=== PATIENT | female | born 2000 | race African-American/Black ===

== ENCOUNTER 2021-02-26 22:24 | Inpatient (IN) | payer OTHER, SELFPAY ==
[~2021-02-26] VITALS: Ht 149.9 cm; Wt 83.0 kg
[2021-02-26] MEDS ORDERED: CARBOPROST 250 MCG/ML AMP IM PRN (23:50)
[2021-02-26] MEDS: LACTATED RINGERS 1,000 ML IV SCH (23:50)
[2021-02-26] MEDS ORDERED: METHYLERGONOVINE 0.2 MG/ML AMP IM PRN (23:50)
[2021-02-27] MEDS: LACTATED RINGERS 1,000 ML IV SCH ×2 (00:03→06:56)
[2021-02-27] MEDS ORDERED: MORPHINE SULFATE 5 MG/ML VIAL IVP PRN (00:25)
[2021-02-27 00:32] LABS: BASOPHILS % (AUTO) 0.2 % (0.0-2.0); EOSINOPHILS # (AUTO) 0.1 K/uL (0-0.4); EOSINOPHILS % (AUTO) 0.6 % (0.0-4.0); HEMOGLOBIN 11.1 g/dL (12.0-16.0); LYMPHOCYTES # (AUTO) 1.5 K/uL (2.5-16.5); LYMPHOCYTES % (AUTO) 16.2 % (20.5-51.1); MEAN CORPUSCULAR HEMOGLOBIN 31 pg (27-31); MEAN CORPUSCULAR HGB CONC 34 g/dL (33-37); MEAN CORPUSCULAR VOLUME 91.6 fL (80-94); MONOCYTES # (AUTO) 0.9 K/uL (0.8-1.0); MONOCYTES % (AUTO) 9.1 % (1.7-9.3); NEUTROPHILS % (AUTO) 73.9 % (42.2-75.2); PLATELET COUNT (AUTO) 269 K/uL (140-450); RED CELL DISTRIBUTION WIDTH 15.2 % (11.6-13.7); WHITE BLOOD COUNT (AUTO) 9.4 K/uL (4.8-10.8)
[2021-02-27 00:46] LABS: ALBUMIN 2.8 g/dL (3.4-5.0); ANION GAP 15.6 (8-16); CARBON DIOXIDE 20.9 mmol/L (21-32); CREATININE 0.8 mg/dL (0.6-1.3); POTASSIUM 3.5 mmol/L (3.5-5.1); TOTAL BILIRUBIN 0.3 mg/dL (0.0-1.0)
[2021-02-27 01:36] LABS: APPEARANCE,URINE HAZY (CLEAR); BILIRUBIN,URINE NEGATIVE (NEGATIVE); BLOOD, URINE NEGATIVE (NEGATIVE); COLOR,URINE YELLOW (YELLOW); LEUKOCYTE ESTERASE ,URINE NEGATIVE (NEGATIVE); NITRITE, URINE NEGATIVE (NEGATIVE); PH,URINE 6.5 (5.0-9.0); UGLUCOSE NEGATIVE (NEGATIVE)
[2021-02-27] MEDS: MISOPROSTOL 25 MCG TAB VG PRN ×2 (01:37→19:02)
[2021-02-27 01:47] LABS: RBC,URINE 0-5 /HPF (0-5); WBC,URINE 0-5 /HPF (0-5)
[2021-02-27 02:10] VITALS: BP 116/72
[2021-02-27] MEDS ORDERED: MORPHINE SULFATE 10 MG/ML VIAL ONE (14:08)
[2021-02-27] MEDS: ONDANSETRON 4 MG/2 ML VIAL IVP PRN (14:15)
[2021-02-27 14:16] VITALS: BP 113/55
[2021-02-27] MEDS ORDERED: OXYTOCIN 20 UNITS in LACTATED RINGERS 1,000 ML IV SCH (19:40)
[2021-02-28] MEDS: LACTATED RINGERS 1,000 ML IV SCH (00:07)
[2021-02-28] MEDS ORDERED: MORPHINE SULFATE 10 MG/ML VIAL ONE (02:46)
[2021-02-28] MEDS: ONDANSETRON 4 MG/2 ML VIAL IVP PRN (02:52)
[2021-02-28] MEDS: MISOPROSTOL 25 MCG TAB VG PRN (07:45)
--- NOTE | 2021-02-28 09:17 | NUR ---
PATIENT HAS BEEN SCREENED AND CATEGORIZED LOW NUTRITION RISK. PATIENT WILL BE SEEN WITHIN 7 DAYS OF ADMISSION. 03/05/[address]
[2021-02-28] MEDS ORDERED: ONDANSETRON 4 MG/2 ML VIAL ONE (20:35)
[2021-02-28] MEDS ORDERED: MORPHINE PRES FREE 10 MG/10 ML AMP IV ONE (20:35)
[2021-02-28] MEDS ORDERED: OXYTOCIN 10 UNITS/ML VIAL ONE ×3 (21:23)
[2021-02-28] MEDS ORDERED: DEXAMETHASONE 4 MG/ML VIAL ONE ×2 (21:24)
[2021-02-28] MEDS ORDERED: METOCLOPRAMIDE 10 MG/2 ML INJ VIAL ONE (21:24)
[2021-02-28] MEDS ORDERED: NALOXONE 0.4 MG/ML VIAL IVP PRN ×3 (21:30)
[2021-02-28] MEDS ORDERED: HYDROmorphone 1 MG/ML AMP IVP PRN (21:30)
[2021-02-28] MEDS ORDERED: ONDANSETRON 4 MG/2 ML VIAL IVP PRN ×3 (21:30→21:40)
[2021-02-28] MEDS ORDERED: NALBUPHINE 10 MG/ML AMP IVP PRN (21:30)
[2021-02-28] MEDS ORDERED: diphenhydrAMINE 50 MG/ML VIAL IVP PRN ×2 (21:30→21:40)
[2021-02-28] MEDS ORDERED: oxyCODONE/APAP 5/325 MG 1 TAB TAB PO PRN (21:40)
[2021-02-28] MEDS ORDERED: CARBOPROST 250 MCG/ML AMP IM PRN (21:40)
[2021-02-28] MEDS ORDERED: PROMETHAZINE 25 MG/ML VIAL IVP PRN (21:40)
[2021-02-28] MEDS ORDERED: MEASLES, MUMPS, AND RUBELLA 1 VIAL SQVAC ONE (21:40)
[2021-02-28] MEDS ORDERED: METHYLERGONOVINE 0.2 MG/ML AMP IM PRN ×2 (21:40)
[2021-02-28] MEDS ORDERED: OXYTOCIN 20 UNITS in LACTATED RINGERS 1,000 ML IV SCH (21:40)
[2021-02-28] MEDS ORDERED: HYDROmorphone PFS 2 MG/ML SYR ONE (21:55)
[2021-02-28] MEDS ORDERED: OXYTOCIN 20 UNITS/LR PREMIX 1,000 ML IV ONE (23:01)
[2021-03-01] MEDS ORDERED: KETOROLAC 30 MG/ML VIAL IM/IVP SCH
[2021-03-01] MEDS: KETOROLAC 30 MG/ML VIAL IM/IVP SCH ×3 (00:10→13:51)
[2021-03-01 06:24] LABS: BASOPHILS % (AUTO) 0.1 % (0.0-2.0); HEMATOCRIT 33.7 % (36-48); HEMOGLOBIN 11.2 g/dL (12.0-16.0); LYMPHOCYTES # (AUTO) 0.6 K/uL (2.5-16.5); LYMPHOCYTES % (AUTO) 4.5 % (20.5-51.1); MEAN CORPUSCULAR HEMOGLOBIN 30 pg (27-31); MEAN CORPUSCULAR HGB CONC 33 g/dL (33-37); MEAN CORPUSCULAR VOLUME 91.7 fL (80-94); MONOCYTES # (AUTO) 0.7 K/uL (0.8-1.0); MONOCYTES % (AUTO) 5.6 % (1.7-9.3); NEUTROPHILS # (AUTO) 11.9 K/uL (1.8-7.7); NEUTROPHILS % (AUTO) 89.8 % (42.2-75.2); PLATELET COUNT (AUTO) 267 K/uL (140-450); RED BLOOD CELL COUNT(AUTO) 3.68 MIL/uL (4.20-5.40); WHITE BLOOD COUNT (AUTO) 13.3 K/uL (4.8-10.8)
[2021-03-01] MEDS ORDERED: bisacodyL 10 MG SUPP RC SCH (09:00)
[2021-03-01] MEDS ORDERED: OXYTOCIN 20 UNITS/LR PREMIX 1,000 ML IV ONE (16:51)
[2021-03-01] MEDS: oxyCODONE/APAP 5/325 MG 1 TAB TAB PO PRN (21:09)
[2021-03-02] MEDS: oxyCODONE/APAP 5/325 MG 1 TAB TAB PO PRN ×2 (06:53→11:00)
== END 2021-03-02 14:45 | disposition home or self-care (01) | DRG 540 ==
LOC: MLD 22:24 → MFCC 02-28 22:11
PROVIDERS: ADMIT Obstetrics & Gynecology; ATTEND Obstetrics & Gynecology
PROC: 10D00Z1 Extraction of Products of Conception, Low, Open Approach (ICD-10-PCS; principal; 2021-03-01)
DX: O62.0 Primary inadequate contractions (principal); O61.9 Failed induction of labor, unspecified; O36.60X0 Maternal care for excessive fetal growth, unspecified trimester, not applicable or unspecified; Z37.0 Single live birth; Z3A.39 39 weeks gestation of pregnancy; Z20.822 Contact with and (suspected) exposure to COVID-19
CPT/HCPCS: 36415; 51702; 59200; 76815; 80053; 81001; 85025; 86592; 86762; 86886; 86900; 86901; 87086; 87340; J0690; J1100; J1170; J1885; J2210; J2270; J2405; J2590; J2765; J7060; J7120; Q0092

== ENCOUNTER 2021-12-08 10:38 | Emergency (ER) | payer OTHER ==
[~2021-12-08] VITALS: Ht 149.9 cm; Wt 67.6 kg
[2021-12-08 10:47] VITALS: BP 116/56
--- NOTE | 2021-12-08 10:50 | NUR ---
PT AMBULATED TO ER BED 9 WITH A STEADY GAIT.
--- NOTE | 2021-12-08 10:52 | NUR ---
21 Y/O FEMALE C/O VAGINAL BLEEDING X3DAYS WITH SMALL CLOTS PRESENT. PT IS 7WEEKS LMP 09/27/21 [id number]. DENIES PAIN. DENIES DISCHARGE. DENIES FEVER/CHILLS. DENIES N/V/D. DENIES PMH NKA
--- NOTE | 2021-12-08 11:33 | NUR ---
STEAM TRAP MAN AT PT BEDSIDE.
--- NOTE | 2021-12-08 11:40 | NUR ---
US AT PT BEDSIDE.
[2021-12-08 11:49] LABS: BASOPHILS % (AUTO) 0.4 % (0.0-2.0); EOSINOPHILS # (AUTO) 0.2 K/uL (0-0.4); EOSINOPHILS % (AUTO) 2.2 % (0.0-4.0); HEMATOCRIT 33.1 % (36-48); HEMOGLOBIN 10.9 g/dL (12.0-16.0); LYMPHOCYTES # (AUTO) 1.8 K/uL (2.5-16.5); LYMPHOCYTES % (AUTO) 17.9 % (20.5-51.1); MEAN CORPUSCULAR HEMOGLOBIN 28 pg (27-31); MEAN CORPUSCULAR HGB CONC 33 g/dL (33-37); MEAN CORPUSCULAR VOLUME 84.4 fL (80-94); MONOCYTES # (AUTO) 0.8 K/uL (0.8-1.0); MONOCYTES % (AUTO) 7.7 % (1.7-9.3); NEUTROPHILS # (AUTO) 7.1 K/uL (1.8-7.7); NEUTROPHILS % (AUTO) 71.8 % (42.2-75.2); PLATELET COUNT (AUTO) 367 K/uL (140-450); RED BLOOD CELL COUNT(AUTO) 3.92 MIL/uL (4.20-5.40); RED CELL DISTRIBUTION WIDTH 14.2 % (11.6-13.7); WHITE BLOOD COUNT (AUTO) 9.9 K/uL (4.8-10.8)
--- NOTE | 2021-12-08 12:07 | NUR ---
PT RESTING IN BED SUPINE, US TECH AT PT BEDSIDE, WILL CONTINUE TO MONITOR.
[2021-12-08 12:36] LABS: ALBUMIN 3.8 g/dL (3.4-5.0); ANION GAP 12.3 (8-16); CARBON DIOXIDE 25.4 mmol/L (21-32); CREATININE 0.7 mg/dL (0.6-1.3); POTASSIUM 3.7 mmol/L (3.5-5.1); TOTAL BILIRUBIN 0.6 mg/dL (0.0-1.0)
[2021-12-08 13:13] VITALS: BP 106/60
--- NOTE | 2021-12-08 13:14 | NUR ---
Patient discharged with v/s stable. Written and verbal after care instructions ABOUT THREATENED MISCARRIAGE given and explained. Patient verbalized understanding. Ambulatory with steady gait. All questions addressed prior to discharge. Advised to follow up with PMD.
[2021-12-08 14:07] LABS: APPEARANCE,URINE CLEAR (CLEAR); BILIRUBIN,URINE NEGATIVE (NEGATIVE); BLOOD, URINE NEGATIVE (NEGATIVE); COLOR,URINE YELLOW (YELLOW); LEUKOCYTE ESTERASE ,URINE NEGATIVE (NEGATIVE); NITRITE, URINE NEGATIVE (NEGATIVE); UGLUCOSE NEGATIVE (NEGATIVE)
== END 2021-12-08 13:13 | disposition home or self-care (01) ==
LOC: MED 10:38
DX: O20.0 Threatened abortion (principal); Z3A.01 Less than 8 weeks gestation of pregnancy
CPT/HCPCS: 36415; 76801; 80053; 81003; 81025; 84702; 85025; 86886; 86900; 86901; 99284; Q0092

== ENCOUNTER 2022-06-30 15:49 | Inpatient (IN) | payer OTHER ==
[~2022-06-30] VITALS: Ht 149.9 cm; Wt 78.5 kg
--- NOTE | 2022-06-30 16:14 | NUR ---
PATIENT HAS BEEN SCREENED AND CATEGORIZED LOW NUTRITION RISK. PATIENT WILL BE SEEN WITHIN 7 DAYS OF ADMISSION. 07/07/[address]
[2022-06-30] MEDS: LACTATED RINGERS 1,000 ML IV SCH ×2 (16:52→20:00)
[2022-06-30 17:02] LABS: BASOPHILS % (AUTO) 0.4 % (0.0-2.0); EOSINOPHILS # (AUTO) 0.1 K/uL (0-0.4); EOSINOPHILS % (AUTO) 0.7 % (0.0-4.0); HEMATOCRIT 33.8 % (36-48); HEMOGLOBIN 11.1 g/dL (12.0-16.0); LYMPHOCYTES # (AUTO) 1.8 K/uL (2.5-16.5); MEAN CORPUSCULAR HEMOGLOBIN 28 pg (27-31); MEAN CORPUSCULAR HGB CONC 33 g/dL (33-37); MEAN CORPUSCULAR VOLUME 86.6 fL (80-94); MONOCYTES # (AUTO) 1.1 K/uL (0.8-1.0); MONOCYTES % (AUTO) 9.4 % (1.7-9.3); NEUTROPHILS # (AUTO) 8.3 K/uL (1.8-7.7); NEUTROPHILS % (AUTO) 73.5 % (42.2-75.2); PLATELET COUNT (AUTO) 327 K/uL (140-450); RED CELL DISTRIBUTION WIDTH 16.4 % (11.6-13.7); WHITE BLOOD COUNT (AUTO) 11.3 K/uL (4.8-10.8)
[2022-06-30 17:43] LABS: BILIRUBIN,URINE NEGATIVE (NEGATIVE); BLOOD, URINE NEGATIVE (NEGATIVE); COLOR,URINE YELLOW (YELLOW); LEUKOCYTE ESTERASE ,URINE 3+ (NEGATIVE); NITRITE, URINE NEGATIVE (NEGATIVE); PH,URINE 6.5 (5.0-9.0); UGLUCOSE NEGATIVE (NEGATIVE)
[2022-06-30 17:46] LABS: PROTHROMBIN TIME 9.8 secs (10.8-13.4)
[2022-06-30 17:52] LABS: APPEARANCE,URINE HAZY (CLEAR)
[2022-06-30 18:50] LABS: ANION GAP 15.7 (8-16); CARBON DIOXIDE 21.1 mmol/L (21-32); CREATININE 0.8 mg/dL (0.6-1.3); POTASSIUM 3.8 mmol/L (3.5-5.1); TOTAL BILIRUBIN 0.6 mg/dL (0.0-1.0)
[2022-06-30] MEDS ORDERED: ceFAZolin 2,000 MG VIAL ONE (19:00)
[2022-06-30 19:08] VITALS: BP 103/57
[2022-06-30] MEDS ORDERED: MORPHINE PRES FREE 10 MG/10 ML AMP IV ONE (20:30)
[2022-06-30] MEDS ORDERED: METHYLERGONOVINE 0.2 MG/ML AMP IM PRN (20:45)
[2022-06-30] MEDS ORDERED: MEASLES, MUMPS, AND RUBELLA 1 VIAL SQVAC ONE (20:45)
[2022-06-30] MEDS ORDERED: oxyCODONE/APAP 5/325 MG 1 TAB TAB PO PRN (20:45)
[2022-06-30] MEDS ORDERED: TRIAMCINOLONE 40 MG/ML 5ML VIAL ONE (21:09)
[2022-06-30] MEDS ORDERED: OXYTOCIN 20 UNITS/LR PREMIX 0 ML IV ONE (21:29)
[2022-06-30] MEDS ORDERED: OXYTOCIN 20 UNITS/LR PREMIX 1,000 ML IV ONE (21:31)
[2022-06-30] MEDS ORDERED: ONDANSETRON 4 MG/2 ML VIAL IVP PRN (21:35)
[2022-06-30] MEDS ORDERED: diphenhydrAMINE 50 MG/ML VIAL IVP PRN (21:35)
[2022-06-30] MEDS ORDERED: METOCLOPRAMIDE 10 MG/2 ML INJ VIAL IVP PRN (21:35)
[2022-06-30] MEDS ORDERED: NALOXONE 0.4 MG/ML VIAL IVP PRN ×3 (21:35)
[2022-06-30] MEDS ORDERED: NALBUPHINE 10 MG/ML AMP IVP PRN (21:35)
[2022-06-30 22:16] LABS: RBC,URINE 0-5 /HPF (0-5); WBC,URINE 20-60 /HPF (0-5)
[2022-06-30 22:17] LABS: YEAST,URINE Few /HPF (None Seen)
[2022-07-01] MEDS: KETOROLAC 30 MG/ML VIAL IM/IVP SCH ×3 (00:14→12:03)
[2022-07-01] MEDS ORDERED: OXYTOCIN 20 UNITS/LR PREMIX 1,000 ML IV ONE ×2 (03:01→10:44)
[2022-07-01] MEDS: OXYTOCIN 20 UNITS in LACTATED RINGERS 1,000 ML IV SCH ×2 (03:08→11:06)
[2022-07-01] MEDS ORDERED: oxyCODONE/APAP 5/325 MG 1 TAB TAB PO PRN ×2 (07:40)
[2022-07-01] MEDS ORDERED: SIMETHICONE 80 MG TAB.CHEW PO PRN (07:55)
[2022-07-01 08:41] LABS: BASOPHILS % (AUTO) 0.1 % (0.0-2.0); HEMATOCRIT 31.1 % (36-48); LYMPHOCYTES % (AUTO) 7.1 % (20.5-51.1); MEAN CORPUSCULAR HEMOGLOBIN 28 pg (27-31); MEAN CORPUSCULAR HGB CONC 32 g/dL (33-37); MEAN CORPUSCULAR VOLUME 87.6 fL (80-94); MONOCYTES % (AUTO) 6.6 % (1.7-9.3); NEUTROPHILS # (AUTO) 12.5 K/uL (1.8-7.7); NEUTROPHILS % (AUTO) 86.2 % (42.2-75.2); PLATELET COUNT (AUTO) 297 K/uL (140-450); RED BLOOD CELL COUNT(AUTO) 3.55 MIL/uL (4.20-5.40); RED CELL DISTRIBUTION WIDTH 16.1 % (11.6-13.7); WHITE BLOOD COUNT (AUTO) 14.5 K/uL (4.8-10.8)
[2022-07-01] MEDS ORDERED: bisacodyL 10 MG SUPP RC SCH (09:00)
[2022-07-01] MEDS: IBUPROFEN 800 MG TAB PO SCH (17:53)
[2022-07-01] MEDS ORDERED: CAMERA MC ONE (19:50)
[2022-07-02] MEDS: IBUPROFEN 800 MG TAB PO SCH ×2 (07:22→12:13)
== END 2022-07-02 15:10 | disposition home or self-care (01) | DRG 540 ==
LOC: MLD 15:49 → MFCC 22:48
PROVIDERS: ADMIT Obstetrics & Gynecology; ATTEND Obstetrics & Gynecology
PROC: 3E0234Z Introduction of Serum, Toxoid and Vaccine into Muscle, Percutaneous Approach (ICD-10-PCS; 2022-06-30)
PROC: 10D00Z1 Extraction of Products of Conception, Low, Open Approach (ICD-10-PCS; principal; 2022-06-30 20:00)
DX: O48.0 Post-term pregnancy (principal); O24.429 Gestational diabetes mellitus in childbirth, unspecified control; Z20.822 Contact with and (suspected) exposure to COVID-19; Z3A.40 40 weeks gestation of pregnancy; Z37.0 Single live birth
CPT/HCPCS: 36415; 80053; 81001; 85025; 85610; 85730; 86592; 86886; 86900; 86901; 87086; J1885; J2270; J2590; J3301; J7120

== ENCOUNTER 2022-07-07 16:20 | Emergency (ER) | payer OTHER ==
[~2022-07-07] VITALS: Ht 149.9 cm; Wt 73.0 kg
[2022-07-07 16:31] VITALS: BP 129/73
--- NOTE | 2022-07-07 17:01 | NUR ---
1700: surgical site cleansed with sterile water and covered with non-adherent dressing and bulky 4x4 dressing.
== END 2022-07-07 17:21 | disposition home or self-care (01) ==
LOC: MED 16:20
DX: O90.0 Disruption of cesarean delivery wound (principal); Z98.890 Other specified postprocedural states; Z91.040 Latex allergy status
CPT/HCPCS: 99281

== ENCOUNTER 2022-09-12 11:14 | Inpatient (IN) | payer OTHER ==
[~2022-09-12] VITALS: Ht 149.9 cm; Wt 71.2 kg
[2022-09-12] MEDS ORDERED: LACTATED RINGERS 1,000 ML IV SCH (14:45)
[2022-09-12 16:43] VITALS: BP 113/79
[2022-09-12] MEDS: AMPICILLIN/SULBACTAM 1.5 GM in NACL 0.9% 50 ML IV SCH (17:13)
[2022-09-13] MEDS ORDERED: LACTATED RINGERS 1,000 ML IV SCH
[2022-09-13 02:32] VITALS: BP 120/80
[2022-09-13] MEDS: AMPICILLIN/SULBACTAM 1.5 GM in NACL 0.9% 50 ML IV SCH ×5 (06:27→17:59)
[2022-09-13 08:00] VITALS: BP 109/69
--- NOTE | 2022-09-13 10:41 | NUR ---
Patient education npo status still wants to eat / drink at 11 wants editorial writer to call MD.
--- NOTE | 2022-09-13 10:51 | NUR ---
Patient to lobby at this time to breastfeed her daughter.
[2022-09-13 16:00] VITALS: BP 120/71
[2022-09-13] MEDS ORDERED: BUPIVACAINE-MPF/EPI 0.25% 30 ML VIAL INJ ONE (16:46)
[2022-09-13] MEDS ORDERED: fentaNYL citrate 0.05 MG/ML - 50mL vial IV ONE (17:00)
[2022-09-13] MEDS ORDERED: SUCCINYLCHOLINE CHLORIDE 200 MG/10 ML VIAL IVP ONE ×2 (17:00→18:52)
[2022-09-13] MEDS ORDERED: LIDOCAINE 1% 500 MG/50 ML VIAL ONE (17:00)
[2022-09-13] MEDS ORDERED: PROPOFOL 200 MG/20 ML VIAL IV ONE ×2 (17:00→18:51)
[2022-09-13] MEDS ORDERED: KETOROLAC 30 MG/ML VIAL ONE ×2 (17:00→18:51)
[2022-09-13] MEDS ORDERED: SEVOFLURANE 250 ML BTL INH ONE (17:00)
[2022-09-13] MEDS ORDERED: ONDANSETRON 4 MG/2 ML VIAL ONE ×2 (17:00→18:51)
[2022-09-13] MEDS ORDERED: ceFAZolin 1,000 MG VIAL ONE ×3 (18:18→18:52)
--- NOTE | 2022-09-13 18:26 | NUR ---
DR. ROJAS AT THE BEDSIDE. PER DR. ROJAS, PT GIVEN ADMISSION ORDERS FOR M/S INPATIENT UNDER DR. BEAN HOSPITALIST. INFORMED DR. BEAN AND ADMITTING.
[2022-09-13] MEDS ORDERED: METOCLOPRAMIDE 10 MG/2 ML INJ VIAL IVP PRN (19:38)
[2022-09-13] MEDS ORDERED: LABETALOL 20 MG/4 ML VIAL IVP PRN (19:38)
[2022-09-13] MEDS ORDERED: HYDROmorphone PFS 2 MG/ML SYR ONE (19:38)
[2022-09-13] MEDS ORDERED: hydrALAZINE 20 MG/ML VIAL IVP PRN (19:39)
[2022-09-13] MEDS: HYDROmorphone 1 MG/ML AMP IVP PRN ×4 (19:40→20:10)
[2022-09-13] MEDS: LACTATED RINGERS 1,000 ML IV SCH (19:40)
[2022-09-13 20:00] VITALS: BP 123/71
[2022-09-14] MEDS: AMPICILLIN/SULBACTAM 1.5 GM in NACL 0.9% 50 ML IV SCH ×3 (06:00)
[2022-09-14 08:00] VITALS: BP 109/71
[2022-09-14] MEDS ORDERED: ACETAMINOPHEN 325 MG TAB PO PRN (08:25)
--- NOTE | 2022-09-14 09:34 | NUR ---
PATIENT HAS BEEN SCREENED AND CATEGORIZED LOW NUTRITION RISK. PATIENT WILL BE SEEN WITHIN 7 DAYS OF ADMISSION. 09/20/[address]
--- NOTE | 2022-09-14 10:02 | NUR ---
Patient request to speak with MD because she says she needs to discharge because of her baby at home crying with her trying to feed her with the breastmilk she has saved for the baby.
[2022-09-14] MEDS: LACTATED RINGERS 1,000 ML IV SCH (10:12)
--- NOTE | 2022-09-14 12:56 | NUR ---
Patient refuses wound care photo. Given discharge instruction and a copy of all the instruction. Patient verbalizes understanding of teaching. She is ambulatory with a steady gait. Intact 20 gauge intravenous catheter tip is present upon removal from left hand. Removal of identification bracelet. Assist via wheelchair to private vehicle.
--- NOTE | 2022-09-19 14:52 | NUR ---
CALLED [facility] LOCATED AT [facility] [address]. SPOKE WITH MAJO WHO WAS ABLE TO HELP ME SCHEDULE A FOLLOW UP APPOINTMENT FOR 10/02/2022 AT 1040. CALLED PATIENT WHO DIDN'T ANSWER BUT I WAS ABLE TO LEAVE MESSAGE IN VOICE MAIL REGARDING THE ABOVE INFORMATION.
== END 2022-09-14 13:05 | disposition home or self-care (01) | DRG 548 ==
LOC: MDS 11:14 → MMU 11:15 → MTU 14:50 → MDS 09-13 18:23 → MTU 09-13 18:23
PROVIDERS: ADMIT Student in an Organized Health Care Education/Training Program; ATTEND Student in an Organized Health Care Education/Training Program
PROC: 0WQF0ZZ Repair Abdominal Wall, Open Approach (ICD-10-PCS; principal; 2022-09-13 17:00)
DX: O90.0 Disruption of cesarean delivery wound (principal); O86.01 Infection of obstetric surgical wound, superficial incisional site; Z80.0 Family history of malignant neoplasm of digestive organs; Z82.49 Family history of ischemic heart disease and other diseases of the circulatory system; Z83.3 Family history of diabetes mellitus
CPT/HCPCS: J0295; J0330; J0690; J1170; J1642; J1885; J2001; J2405; J2704; J3010; J3490; J7060